=== PATIENT | female | born 1945 | race Asian ===

== ENCOUNTER → 2018-07-18 | Outpatient (CLI) | payer MEDICARE ==
[~2018-07-18] MED LIST: ALENDRONATE SOD70 MG PO; ALTACE10 MG PO; ASA81 MG PO; CALCIUM500 M3; FISH OIL 1,0001 EAC2 PO; GABAPENTIN100 MG PO; GABAPENTIN300 MG PO; LEVAQUIN500 MG PO; LEVEMIR100 UNIT/1 SQ; NOVOLOG100 UNIT/1 SQ; TAMIFLU75 MG PO; Z.0.CRESTOR20 MG PO; Z.0.SYNTHROID75 MCG PO; ZOFRAN8 MG; [UNRECOGNIZED DRUG - OTHER]
--- NOTE | 2018-07-18 16:06 | Diagnostic Imaging Report ---
EXAMINATION: CHEST 2 VIEWS COMPARISON: None FINDINGS: TUBES and LINES: None. LUNGS: Moderate inflation of the lungs. Mild patchy opacities at the lung bases. No evidence of lobar pneumonia or pulmonary edema. There is bronchial wall thickening. PLEURA: No pleural effusion or pneumothorax. HEART AND MEDIASTINUM: The cardiomediastinal silhouette is unremarkable. BONES AND SOFT TISSUES: No acute bony findings. Dextroconvex curvature of the thoracic spine. UPPER ABDOMEN: No free air under the diaphragm. IMPRESSION: Mild patchy opacities at the lung bases, likely atelectasis. Patchy pneumonia can have a similar appearance and a follow-up chest radiograph is suggested in 6-8 weeks to assess for resolution. Bilateral bronchial wall thickening, consistent with clinical history of bronchitis. Signed by: Dr. Lety Wagoner MD on 07/18/2018 4:03 PM
== END ==
LOC: RAD 15:02
PROVIDERS: ATTEND Family Medicine
DX: J40 Bronchitis, not specified as acute or chronic (principal)
CPT/HCPCS: 71046

== ENCOUNTER 2018-07-20 12:28 | Inpatient (IN) | payer MEDICARE ==
[~2018-07-20] VITALS: Ht 154.9 cm; Wt 66.9 kg
[~2018-07-20 12:28] MED LIST changes: -ALTACE10 MG PO; -GABAPENTIN100 MG PO; -GABAPENTIN300 MG PO; -LEVAQUIN500 MG PO; -TAMIFLU75 MG PO; -ZOFRAN8 MG
--- OUTSIDE RECORDS SUMMARY | 2018-07-20 12:32 | XMS REPORT ---
Author Author [facility] Address Unknown Phone Unavailable Care Team Providers Care Driver/Refuse Collector Name Role Phone REYMUNDO LOCK Unavailable Unavailable Problems This patient has no known problems. Allergies, Adverse Reactions, Alerts This patient has no known allergies or adverse reactions. Medications This patient has no known medications. Results Test Description Test Time Test Comments Text Results Atomic Results Result Comments CHEST 2 VIEWS 2018-07-18 16:01:00 [facility] [address] [address] Patient Name: BEBO GONZALEZ MR #: [id number] : 1945 Age/Sex: 73/F Req #: [id number] Adm Physician: Ordered by: REYMUNDO LOCK MD Report #: [id number] Location: [facility] Room/Bed: Procedure: [id number] DX/CHEST 2 VIEWS Exam Date: 07/18/18 Exam Time: 1520 REPORT STATUS: Signed EXAMINATION: CHEST 2 VIEWS COMPARISON: None FINDINGS: TUBES and LINES: None. LUNGS: Moderate inflation of the lungs. Mild patchy opacities at the lung bases. No evidence of lobar pneumonia or pulmonary edema. There is bronchial wall thickening. PLEURA: No pleural effusion or pneumothorax. HEART AND MEDIASTINUM: The cardiomediastinal silhouette is unremarkable. BONES AND SOFT TISSUES: No acute bony findings. Dextroconvex curvature of the thoracic spine. UPPER ABDOMEN: No free air under the diaphragm. IMPRESSION: Mild patchy opacities at the lung bases, likely atelectasis. Patchy pneumonia can have a similar appearance and a follow-up chest radiograph is suggested in 6-8 weeks to assess for resolution. Bilateral bronchial wall thickening, consistent with clinical history of bronchitis. Signed by: Dr. Claire Sarmiento MD on 07/18/2018 4:03 PM Dictated By: CLAIRE SARMIENTO MD 1603 Transcribed By: BLESSING on 07/18/18 1603 COPY TO: REYMUNDO LOCK MD
[2018-07-20] MEDS ORDERED: LEVAQUIN500 MG PO (13:18)
[2018-07-20] MEDS ORDERED: ALTACE10 MG PO (13:18)
[2018-07-20] MEDS ORDERED: ZOFRAN8 MG (13:18)
[2018-07-20] MEDS ORDERED: TAMIFLU75 MG PO (13:18)
[2018-07-20] MEDS ORDERED: GABAPENTIN100 MG PO (13:18)
[2018-07-20] MEDS ORDERED: GABAPENTIN300 MG PO (13:18)
--- NOTE | 2018-07-20 13:40 | Diagnostic Imaging Report ---
EXAMINATION: PA and lateral views of the chest. COMPARISON: 07/18/2018 CLINICAL HISTORY: Bronchitis DISCUSSION: When accounting for differences in technique, no appreciable interval change in the appearance of the lungs, with persistent bronchial thickening and bilateral lower lobe predominant patchy opacities. Stable cardiomediastinal contour with tortuosity and atherosclerotic calcification of the thoracic aorta. No acute osseous abnormalities. Stable dextroscoliotic curvature of the thoracic spine. IMPRESSION: Stable appearance of the chest relative to 07/18/2018, with findings of bronchitis and bibasilar atelectasis. As before, follow-up chest radiograph in 8 weeks is suggested to document resolution. Signed by: Dr. Bry Subramanian M.D. on 07/20/2018 1:37 PM
[2018-07-20] MEDS ORDERED: LEVOFLOXACIN 750MG/D5W 150ML 150 ML IV STA (14:02)
[2018-07-20] MEDS: SODIUM CHLORIDE 0.9% 1000ML 1,000 ML IV SCH ×3 (14:20→23:55)
[2018-07-20] MEDS ORDERED: CEFTRIAXONE SOD 1 GM VIAL IM STA (14:40)
[2018-07-20] MEDS ORDERED: AZITHROMYCIN 500MG/NS 250 ML 250 ML IV ONE (14:45)
[2018-07-20] MEDS: AZITHROMYCIN 500MG/NS 250 ML 250 ML IV SCH (15:00)
[2018-07-20] MEDS: CEFTRIAXONE SOD 1 GM VIAL IV SCH (15:00)
[2018-07-20] MEDS ORDERED: DEXTROSE 50% SYRINGE 50 ML IV PRN ×2 (15:45→20:00)
[2018-07-20] MEDS ORDERED: SODIUM CHLORIDE FLUSH 10 ML SYR INJ PRN (15:45)
[2018-07-20] MEDS ORDERED: AZITHROMYCIN 500MG/SOD CHL 0.9% 250ML BAG IV SCH (15:45)
[2018-07-20] MEDS ORDERED: ALBUTEROL SULF 0.083% NEB SOLN 3 ML NEB NEB SCH (15:45)
[2018-07-20] MEDS ORDERED: INSULIN REGULAR, HUMAN 100 UNIT/1 ML 3ML VIAL SQ SCH (16:30)
[2018-07-20] MEDS ORDERED: IPRATROPIUM BROMIDE 0.02% 2.5 ML NEB NEB SCH (16:30)
[2018-07-20] MEDS ORDERED: OSELTAMIVIR PHOSPHATE 75 MG CAP PO SCH (17:00)
[2018-07-20 19:00] VITALS: BP 183/67
[2018-07-20] MEDS ORDERED: NON-FORMULARY MEDICATION (Insulin Detemir (Levemir) 30 UNITS) SQ SCH (20:00)
[2018-07-20] MEDS ORDERED: BENZONATATE 100 MG CAP PO PRN (20:00)
[2018-07-20] MEDS ORDERED: ALBUTEROL/IPRATROPIUM 3 ML NEB NEB PRN (20:00)
[2018-07-20] MEDS ORDERED: ASPIRIN 81 MG PO SCH (20:00)
[2018-07-20] MEDS ORDERED: NON-FORMULARY MEDICATION (Rosuvastatin Calcium (Crestor) 20 MG) PO SCH (20:00)
[2018-07-20] MEDS: OSELTAMIVIR PHOSPHATE 75 MG CAP PO SCH (20:30)
[2018-07-20] MEDS: ASPIRIN 81 MG ENTERIC COATED PO SCH (20:30)
[2018-07-20] MEDS: INSULIN LISPRO 100 UNIT/1 ML 3ML VIAL SQ SCH (20:30)
[2018-07-20] MEDS: CRESTOR 10MG PO SCH (20:30)
[2018-07-20] MEDS ORDERED: INSULIN DETEMIR 100 UNIT/ML PEN SQ SCH (21:00)
[2018-07-20 21:21] VITALS: BP 100/62
[2018-07-21 00:06] VITALS: BP 159/71
[2018-07-21] MEDS: ALBUTEROL/IPRATROPIUM 3 ML NEB NEB SCH ×4 (03:35→20:00)
--- NOTE | 2018-07-21 03:43 | Diagnostic Imaging Report ---
EXAM: CT CHEST WO DATE: 07/20/2018 7:52 PM INDICATION: Shortness of breath COMPARISON: Chest Some 07/29/2015, 07/18/2018 TECHNIQUE: Multidetector CT scanning of the chest was performed. Coronal and sagittal multiplanar reformations were obtained. CT low dose techniques were utilized, as applicable. IV Contrast: 0 ml Isovue 370/300 FINDINGS: LUNGS AND PLEURA: Bilateral coarse reticular and subpleural opacities with traction bronchiectasis. Several small pulmonary nodules for example measuring 5 mm in the right lower lobe on image 66 and 4 mm nodule in the left lower lobe on image 64. No effusions or pneumothorax. HEART, MEDIASTINUM, VESSELS: Mild cardiomegaly with coronary artery and aortic atherosclerotic calcifications. No pericardial effusion. The main pulmonary artery is slightly enlarged, 3.4 cm. No suspicious adenopathy. UPPER ABDOMEN: Unremarkable noncontrast appearance. Incidental mildly atrophic pancreas. MUSCULOSKELETAL: Multilevel degenerative changes with mild T12 anterior wedging IMPRESSION: Findings most suggestive of chronic lung change/interstitial lung disease. Consider nonemergent follow-up CT high-resolution protocol. Signed by: Dr Azra Bundy MD on 07/21/2018 3:39 AM
[2018-07-21] MEDS: CEFTRIAXONE SOD 1 GM VIAL IV SCH ×2 (04:45→17:07)
[2018-07-21 05:11] VITALS: BP 125/58
[2018-07-21 05:15] LABS: BASOPHILS % 0.3 % (0.0-1.0); EOSINOPHILS # (AUTO) 0.2 (0.0-0.4); EOSINOPHILS % 3.2 % (0.0-6.0); HEMATOCRIT 30.6 % (34.2-44.1); HEMOGLOBIN 10.4 g/dL (12.0-16.0); LYMPHOCYTES # (AUTO) 2.9 (1.0-3.2); LYMPHOCYTES % 42.5 % (18.0-39.1); MEAN CORPUSCULAR HEMOGLOBIN 30.3 pg (28-32); MEAN CORPUSCULAR VOLUME 89.2 fL (81-99); MONOCYTES # (AUTO) 0.7 (0.2-0.8); MONOCYTES % 9.7 % (4.4-11.3); PLATELET COUNT 188 x10e3/uL (140-360); RED BLOOD COUNT 3.43 x10e6/uL (3.6-5.1); RED CELL DISTRIBUTION WIDTH 13.3 % (11.7-14.4)
[2018-07-21 05:36] LABS: ANION GAP 11.7 mmol/L (8-16); BLOOD UREA NITROGEN 9 mg/dL (7-26); BUN/CREATININE RATIO 11 (6-25); CALCIUM 7.8 mg/dL (8.4-10.2); CARBON DIOXIDE 21 mmol/L (22-29); CHLORIDE 109 mmol/L (98-107); CREATININE, SERUM 0.84 mg/dL (0.57-1.11); EST GLOMERULAR FILTRATION RATE > 60 ML/MIN (60-); GLUCOSE 161 mg/dL (74-118); POTASSIUM 3.7 mmol/L (3.5-5.1); SODIUM 138 mmol/L (136-145)
[2018-07-21] MEDS: LEVOTHYROXINE SODIUM 75 MCG TAB PO SCH (06:22)
[2018-07-21] MEDS: SODIUM CHLORIDE 0.9% 1000ML 1,000 ML IV SCH (06:23)
[2018-07-21] MEDS: INSULIN LISPRO 100 UNIT/1 ML 3ML VIAL SQ SCH ×7 (07:30→21:30)
[2018-07-21 08:16] LABS: CREATINE KINASE 534 IU/L (29-168)
[2018-07-21 08:20] VITALS: BP 137/56
[2018-07-21] MEDS: OSELTAMIVIR PHOSPHATE 75 MG CAP PO SCH (09:00)
[2018-07-21] MEDS ORDERED: NON-FORMULARY MEDICATION (Ramipril (Altace) 10 MG) PO SCH (09:00)
[2018-07-21] MEDS: ASPIRIN 81 MG ENTERIC COATED PO SCH (09:00)
[2018-07-21] MEDS: RAMIPRIL 5 MG CAP PO SCH (09:00)
[2018-07-21] MEDS: GABAPENTIN 100 MG CAP PO SCH ×2 (09:46→17:08)
[2018-07-21 11:57] VITALS: BP 150/81
[2018-07-21] MEDS ORDERED: METHYLPREDNISOLONE SOD SUCC 40 MG/ML VIAL IV SCH (12:00)
[2018-07-21 12:50] LABS: FOLATE 17.6 ng/mL (7.0-15.4)
[2018-07-21] MEDS: BENZONATATE 100 MG CAP PO SCH ×3 (13:12→20:57)
[2018-07-21] MEDS: GUAIFENESIN 600MG/DEXTROMETHORPHAN 30MG TABSR PO SCH ×2 (13:12→17:00)
[2018-07-21] MEDS ORDERED: ACETAMINOPHEN 325 MG TAB PO PRN ×2 (16:30)
[2018-07-21 16:38] VITALS: BP 142/60
--- NOTE | 2018-07-21 16:59 | Consultation ---
DATE OF CONSULTATION: PULMONARY CONSULTATION A [employer] 73-year-old woman admitted with cough productive of green sputum over the last 5 days. No improvement with Levaquin. History of diabetes, hypertension, hypothyroidism, degenerative joint disease of the knees. 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 ALLERGIES: NO KNOWN ALLERGIES. Born in [place]. She said that she had a recent flu vaccine. SURGICAL HISTORY: Hysterectomy. Nonsmoker. No alcohol. FAMILY HISTORY: Noncontributory. PHYSICAL EXAMINATION GENERAL: A well-developed female in no acute distress. VITALS: Temperature 98, pulse 79, respirations 18, blood pressure 150/78. HEENT: Normocephalic and atraumatic. NECK: Trachea midline. LUNGS: Wheezing in all lung [place]. HEART: Regular rhythm. ABDOMEN: Nontender. EXTREMITIES: Nonedematous. IMPRESSION 1. Community-acquired pneumonia: Possible influenza. 2. Diabetes. 3. Hypertension. The patient has had influenza vaccine recently according to her history. Chest x-ray reveals bilateral interstitial changes suspicious for fibrosis. Chest x-ray appeared clear in 2014. IMPRESSION 1. Probable atypical pneumonia. 2. Possible staphylococcus. Continue excellent medical management. Will add doxycycline to include staphylococcal coverage. Monitor blood sugars. Moderate dose steroids and bronchodilators. Follow up x-ray in approximately [address] if not completely cleared. Thank you for this kind referral. Job#: [id number] KELLY
[2018-07-21] MEDS: AZITHROMYCIN 500MG/NS 250 ML 250 ML IV SCH (17:07)
[2018-07-21] MEDS: DOXYCYCLINE HYCLATE TABLET 100 MG TAB PO SCH (17:25)
[2018-07-21 20:38] VITALS: BP 146/64
[2018-07-21] MEDS: CRESTOR 10MG PO SCH (20:57)
[2018-07-21] MEDS ORDERED: INSULIN DETEMIR 100 UNIT/ML PEN SQ SCH (21:00)
[2018-07-21] MEDS: METHYLPREDNISOLONE SOD SUCC 40 MG/ML VIAL IV SCH (21:24)
[2018-07-21] MEDS: HEPARIN SOD (PORCINE) 5,000 UNIT/ML VIAL SC SCH (21:30)
[2018-07-22 00:22] VITALS: BP 135/61
[2018-07-22] MEDS: ALBUTEROL/IPRATROPIUM 3 ML NEB NEB SCH (00:45)
[2018-07-22 03:57] VITALS: BP 146/64
[2018-07-22] MEDS: CEFTRIAXONE SOD 1 GM VIAL IV SCH (05:20)
[2018-07-22] MEDS: SODIUM CHLORIDE 0.9% 1000ML 1,000 ML IV SCH (05:20)
[2018-07-22] MEDS: LEVOTHYROXINE SODIUM 75 MCG TAB PO SCH (05:20)
[2018-07-22 06:37] VITALS: BP 162/70
[2018-07-22] MEDS: INSULIN LISPRO 100 UNIT/1 ML 3ML VIAL SQ SCH ×4 (08:00→12:20)
[2018-07-22] MEDS: RAMIPRIL 5 MG CAP PO SCH (08:06)
[2018-07-22] MEDS: METHYLPREDNISOLONE SOD SUCC 40 MG/ML VIAL IV SCH (08:06)
[2018-07-22] MEDS: GABAPENTIN 100 MG CAP PO SCH (08:06)
[2018-07-22] MEDS: ASPIRIN 81 MG ENTERIC COATED PO SCH (08:06)
[2018-07-22] MEDS: GUAIFENESIN 600MG/DEXTROMETHORPHAN 30MG TABSR PO SCH (08:06)
[2018-07-22] MEDS: BENZONATATE 100 MG CAP PO SCH (08:07)
[2018-07-22] MEDS: DOXYCYCLINE HYCLATE TABLET 100 MG TAB PO SCH (08:07)
[2018-07-22] MEDS: HEPARIN SOD (PORCINE) 5,000 UNIT/ML VIAL SC SCH (08:10)
[2018-07-22 09:11] VITALS: BP 154/68
[2018-07-22 14:25] VITALS: BP 175/72
[2018-07-22 14:44] VITALS: BP 175/72
--- NOTE | 2018-07-22 21:29 | Discharge Summary ---
PRIMARY CARE PHYSICIAN: Dr. Jos Tovar. COLOR ARTIST: Dr. Bry Reece. FINAL DIAGNOSES 1. Atypical pneumonia. 2. Intractable cough, much improved. 3. Wheezing, improving. SUMMARY: This 73-year-old female failed outpatient treatment with Levaquin. The patient came to the hospital for admission. Here the patient did receive doxycycline, azithromycin, and Rocephin. She is doing much better now. She is breathing much better with medication. The patient is recommended to stay in the hospital for another 1 to 2 days. The patient does need a few more days of treatment; however, she is adamantly wanting to be discharged today. The patient will be discharged home. She will resume home medications. She will take Robitussin as needed for cough, Tessalon Perles, azithromycin 250 mg daily for 5 days, and Medrol Dosepak; since the patient's wheezing has improved, she will continue with treatment; doxycycline 100 mg twice a day for 7 days, and ProAir HFA p.r.n. Patient is stable and discharged home today. She will follow with Dr. Tovar next week. We recommended the patient to repeat a CT scan for resolution of the infection. Job#: [id number] SHAYNA
== END 2018-07-22 16:20 | disposition home or self-care (01) | DRG 195 ==
LOC: FSED 12:28 → ERHOLD 15:45 → MED/SURG2 18:49
PROVIDERS: ADMIT Internal Medicine; ATTEND Internal Medicine
DX: J18.9 Pneumonia, unspecified organism (principal); R09.02 Hypoxemia; E11.9 Type 2 diabetes mellitus without complications; E03.9 Hypothyroidism, unspecified; I10 Essential (primary) hypertension; E78.5 Hyperlipidemia, unspecified; J20.9 Acute bronchitis, unspecified; M17.0 Bilateral primary osteoarthritis of knee; J84.10 Pulmonary fibrosis, unspecified
CPT/HCPCS: 36415; 71046; 71250; 80048; 80076; 82550; 82553; 82607; 82746; 82948; 83605; 84443; 84484; 85025; 85651; 86039; 86431; 87040; 87400; 93005; 94640; 99284; J0456; J0696; J1644; J2920; J7030

== ENCOUNTER 2019-04-13 12:06 | Inpatient (IN) | payer MEDICARE ==
[~2019-04-13] VITALS: Ht 152.4 cm; Wt 59.0 kg
[~2019-04-13 12:06] MED LIST changes: +ALTACE10 MG PO; +GABAPENTIN100 MG PO; +GABAPENTIN300 MG PO; +LEVAQUIN500 MG PO; +TAMIFLU75 MG PO; +ZOFRAN8 MG
[2019-04-13] MEDS ORDERED: ONDANSETRON HCL INJ 2MG/ML 2ML 2 MG/ML VIAL IV STA (12:26)
[2019-04-13] MEDS ORDERED: SODIUM CHLORIDE 0.9% 1000ML 1,000 ML IV SCH ×3 (12:30→14:45)
[2019-04-13] MEDS ORDERED: ONDANSETRON HCL INJ 2MG/ML 2ML 2 MG/ML VIAL ONE (13:07)
[2019-04-13] MEDS ORDERED: SODIUM CHLORIDE 0.9% 1000ML 1,000 ML ONE (13:07)
--- NOTE | 2019-04-13 13:53 | Diagnostic Imaging Report ---
Chest, 2 views, 04/13/2019. History: Cough. Comparison: 07/20/2018. Findings: The cardiomediastinal silhouette and pulmonary vasculature are prominent. There are mild diffuse interstitial opacities. There is no focal consolidation or effusion. Degenerative changes are noted throughout the thoracic spine. There are no acute osseous or soft tissue abnormalities. Impression: Findings suggestive of CHF with mild interstitial edema. Signed by: Casey Butt on 04/13/2019 1:50 PM
--- NOTE | 2019-04-13 14:13 | Diagnostic Imaging Report ---
CT of the abdomen and pelvis, without contrast, 04/13/2019. History: Nausea vomiting, abdominal pain. Comparison: None available. Technique: Multidetector CT scanning of the abdomen and pelvis was performed from the level of the lung bases to the inferior pubic rami without intravenous or oral contrast. Coronal and sagittal multiplanar reformations were obtained. RADIATION DOSE: Total DLP: 454 mGy*cm Dose modulation, iterative reconstruction, and/or weight based adjustment of the mA/kV was utilized to reduce the radiation dose to as low as reasonably achievable. Discussion: Examination is limited without contrast. Lung bases: There is bibasilar atelectasis and mild interstitial prominence. Abdomen: The liver, gallbladder, biliary tree, spleen, pancreas, adrenal glands, and kidneys are unremarkable. The abdominal aorta is within normal limits. There is no bowel dilatation. The appendix is visualized and is normal. There is no evidence of adenopathy or free fluid. Pelvis: The bladder is unremarkable. The uterus and adnexa are not visualized. There is no evidence of free fluid or adenopathy. Bones and soft tissues: Degenerative changes are present throughout the lumbar spine without evidence of lytic or sclerotic lesion. IMPRESSION: Status post hysterectomy. Otherwise unremarkable noncontrast CT of the abdomen and pelvis. No evidence of cholelithiasis, nephrolithiasis, appendicitis, or bowel obstruction. Signed by: Casey Butt on 04/13/2019 2:09 PM
[2019-04-13] MEDS ORDERED: LEVOFLOXACIN 750MG/D5W 150ML 150 ML IV SCH (14:30)
[2019-04-13] MEDS ORDERED: LEVOFLOXACIN 750MG/D5W 150ML 150 ML IV ONE (14:44)
[2019-04-13] MEDS ORDERED: DEXTROSE 50% SYRINGE 50 ML IV PRN ×2 (14:45→18:00)
[2019-04-13] MEDS ORDERED: ONDANSETRON HCL INJ 2MG/ML 2ML 2 MG/ML VIAL IV PRN (14:45)
[2019-04-13] MEDS ORDERED: INSULIN REGULAR, HUMAN 100 UNIT/1 ML 3ML VIAL SQ SCH (16:30)
[2019-04-13] MEDS ORDERED: NON-FORMULARY MEDICATION (Insulin Detemir (Levemir) 40 UNITS) SQ SCH (18:00)
[2019-04-13] MEDS ORDERED: ASPIRIN 81 MG PO SCH (18:00)
--- NOTE | 2019-04-13 18:15 | NUR ---
Report to DARRICK Gage.
--- NOTE | 2019-04-13 18:16 | NUR ---
Call [facility] for transport. ETA is about an hour.
--- NOTE | 2019-04-13 19:06 | NUR ---
Shift report to DARRICK Coates
--- NOTE | 2019-04-13 19:10 | NUR ---
UPDATED ETA FROM [facility] IS 20 MINUTES
--- NOTE | 2019-04-13 19:19 | NUR ---
RAD FROM [facility] REQUESTED ORGINAL ORDER PUT IN BY PAULA HOLLINGSWORTH FOR CT WITHOUT CHEST TO BE CHANGED TO VERBAL INSTERAD OF WRITTEN PER ORGINAL DOCTORS ORDER.
[2019-04-13 20:00] VITALS: BP 144/60
[2019-04-13] MEDS: CEFTRIAXONE SOD 1 GM/NS 50 ML 50 ML IV SCH (20:35)
[2019-04-13] MEDS ORDERED: SODIUM CHLORIDE 0.9% 250ML 250 ML ONE (20:38)
[2019-04-13 21:00] VITALS: BP 124/78
[2019-04-13] MEDS ORDERED: INSULIN GLARGINE 100 UNITS/ML VIAL SQ SCH (21:00)
[2019-04-13] MEDS: INSULIN LISPRO 100 UNIT/1 ML 3ML VIAL SQ SCH ×2 (21:00)
[2019-04-13 21:02] LABS: BASOPHILS # (AUTO) 0.1 (0.0-0.1); BASOPHILS % 0.5 % (0.0-1.0); EOSINOPHILS # (AUTO) 0.5 (0.0-0.4); EOSINOPHILS % 3.7 % (0.0-6.0); HEMATOCRIT 37.2 % (34.2-44.1); HEMOGLOBIN 12.4 g/dL (12.0-16.0); LYMPHOCYTES # (AUTO) 3.2 (1.0-3.2); LYMPHOCYTES % 25.7 % (18.0-39.1); MEAN CORPUSCULAR HEMOGLOBIN 29.9 pg (28-32); MEAN CORPUSCULAR HGB CONC 33.3 g/dL (31-35); MEAN CORPUSCULAR VOLUME 89.6 fL (81-99); MONOCYTES # (AUTO) 1.1 (0.2-0.8); MONOCYTES % 8.6 % (4.4-11.3); NEUTROPHILS # (AUTO) 7.5 (2.1-6.9); PLATELET COUNT 187 x10e3/uL (140-360); RED BLOOD COUNT 4.15 x10e6/uL (3.6-5.1); RED CELL DISTRIBUTION WIDTH 13.9 % (11.7-14.4)
[2019-04-13 21:16] LABS: ANION GAP 17.3 mmol/L (8-16); CALCIUM 9.5 mg/dL (8.4-10.2); CREATININE, SERUM 1.24 mg/dL (0.57-1.11); POTASSIUM 4.3 mmol/L (3.5-5.1)
[2019-04-13] MEDS: AZITHROMYCIN 250MG/NS 100 ML 100 ML IV SCH (21:45)
--- NOTE | 2019-04-13 22:00 | NUR ---
Dr. Avila and Rob called for consult
--- NOTE | 2019-04-13 23:49 | NUR ---
Radiology was called and made aware of pending ct, states will come pick patient
[2019-04-14] VITALS (10 sets, daily range): BP systolic 124–154; BP diastolic 51–94
[2019-04-14 05:24] LABS: BASOPHILS % 0.4 % (0.0-1.0); EOSINOPHILS # (AUTO) 0.4 (0.0-0.4); EOSINOPHILS % 5.2 % (0.0-6.0); HEMATOCRIT 32.5 % (34.2-44.1); HEMOGLOBIN 10.8 g/dL (12.0-16.0); LYMPHOCYTES % 25.9 % (18.0-39.1); MEAN CORPUSCULAR HEMOGLOBIN 29.5 pg (28-32); MEAN CORPUSCULAR HGB CONC 33.2 g/dL (31-35); MEAN CORPUSCULAR VOLUME 88.8 fL (81-99); MONOCYTES # (AUTO) 0.7 (0.2-0.8); MONOCYTES % 8.8 % (4.4-11.3); NEUTROPHILS # (AUTO) 4.7 (2.1-6.9); NEUTROPHILS % 59.6 % (38.7-80.0); PLATELET COUNT 186 x10e3/uL (140-360); RED BLOOD COUNT 3.66 x10e6/uL (3.6-5.1); RED CELL DISTRIBUTION WIDTH 13.9 % (11.7-14.4)
[2019-04-14 05:52] LABS: ALBUMIN 2.7 g/dL (3.5-5.0); ANION GAP 13.5 mmol/L (8-16); CREATININE, SERUM 1.04 mg/dL (0.57-1.11); POTASSIUM 4.5 mmol/L (3.5-5.1)
--- NOTE | 2019-04-14 06:39 | Diagnostic Imaging Report ---
EXAMINATION: CT scan of the chest without contrast. TECHNIQUE: Spiral CT images of the chest were performed from the lung apices to the level of the adrenal glands. No intravenous contrast was administered per referring physician request. Coronal and sagittal reformatted images were obtained. COMPARISON: CT chest 07/20/2018 CLINICAL HISTORY:Shortness of breath, pneumonia DISCUSSION: ABSENCE OF INTRAVENOUS CONTRAST DECREASES SENSITIVITY FOR DETECTION OF FOCAL LESIONS AND VASCULAR PATHOLOGY. LINES/TUBES: None. LUNGS AND AIRWAYS: As before, basal predominant juxtapleural reticular and groundglass opacities, similar to that noted on 07/20/2018. There are scattered foci of endobronchial mucous plugging for example in the right upper lobe on series 3 image 27 and in the right lower lobe on series 3 image 69. 5 mm right lower lobe pulmonary nodule is unchanged (series 3 image 62) 4-mm left lower lobe pulmonary nodule is also unchanged, series 3 image 61. No airspace consolidations. PLEURA: No pneumothorax or pleural effusions. HEART AND MEDIASTINUM: Visualized portions of the thyroid gland appear normal. Atherosclerotic calcification of the [place] coronary arteries, aortic arch, and great vessel origins. No ectasia or aneurysmal dilatation. Pulmonary outflow tract is of normal caliber. No pericardial effusion. No axillary, hilar, or mediastinal lymphadenopathy. LYMPH NODES: There is no mediastinal, hilar or axillary lymphadenopathy. ABDOMEN: Visualized portions of the liver, spleen, pancreas, adrenal lands, and stomach are unremarkable. BONES AND SOFT TISSUES: Multilevel degenerative disc changes of the thoracic spine similar to that seen on 07/20/2018. IMPRESSION: Findings are again most suggestive of chronic interstitial lung disease, with a basal predominance. Nonemergent high-resolution chest CT may be of benefit for further characterization. Scattered foci of segmental bronchial mucous plugging. Subcentimeter bilateral lower lobe pulmonary nodules are stable. Atherosclerotic vascular disease. Signed by: Dr. Bry Subramanian M.D. on 04/14/2019 6:36 AM
--- NOTE | 2019-04-14 06:40 | Diagnostic Imaging Report ---
Examination: Single AP view of the chest. COMPARISON: 07/18/2018, same day chest CT INDICATION: Cough DISCUSSION: Lungs are well-inflated. Coarse reticular opacities in the lung bases. No consolidation or effusion. Tortuous thoracic aorta with atherosclerotic calcification. Normal heart size for technique. No acute osseous abnormality. IMPRESSION: Bibasilar opacities likely representing fibrotic changes. Refer to same day chest CT. Signed by: Dr. Bry Subramanian M.D. on 04/14/2019 6:37 AM
--- NOTE | 2019-04-14 07:11 | NUR ---
Consult made to Dr. Larios for hrt block, states will see patient
--- NOTE | 2019-04-14 07:12 | NUR ---
Report given to hayes Ross
[2019-04-14] MEDS: CEFTRIAXONE SOD 1 GM/NS 50 ML 50 ML IV SCH ×2 (07:18→19:53)
[2019-04-14] MEDS: LEVOTHYROXINE SODIUM 75 MCG TAB PO SCH (07:18)
[2019-04-14] MEDS: INSULIN LISPRO 100 UNIT/1 ML 3ML VIAL SQ SCH ×7 (07:44→20:18)
[2019-04-14] MEDS ORDERED: GABAPENTIN 300 MG CAP PO SCH (09:00)
[2019-04-14] MEDS ORDERED: GABAPENTIN 100 MG CAP PO SCH (09:00)
[2019-04-14] MEDS: ASPIRIN 81 MG CHEW TAB PO SCH (09:46)
--- NOTE | 2019-04-14 13:42 | Consultation ---
DATE OF CONSULTATION: 04/14/2019 Cardiac Consultation REASON FOR CONSULTATION: Alberto, possible 2:1 AV block. HISTORY OF PRESENT ILLNESS: A 73-year-old lady in complete denial, she wants to go home. For 3 days, she is having fever and chills after sore throat, she had vomiting. The patient came to this institution, started on antibiotic, diagnosed with bronchitis. Her problem started with sore throat, cough, fever, and chills. The patient was very febrile. With that, she is having also nausea and vomiting, and with that the patient noted she go to [facility] with these retching episodes. Cardiac consultation is obtained. The patient told me she was seen by Cardiology 3 years ago and she had a stress test. She denied having any cardiac issue, however, she is very poorly historian. She does not know much about her health problem. She denied having any lung disease, although she was here before with wheezes and chronic lung disease. She is diabetic, hypertensive, heavy smoker with hypothyroidism. The patient denied having any exertional angina. She said she can do whatever activity without any symptoms. There is no orthopnea, no paroxysmal nocturnal dyspnea. The patient having relentless cough. She is having with the cough, chest pain. She is having nausea and not feeling well. REVIEW OF SYSTEMS: Extensive to all systems, will be summarized for clarity. GENERAL: Fever and chills, bzhjwnv-hv-leawcl of three days duration. HEENT: Congestion and change in voice. PULMONARY: Cough, nonproductive. CARDIAC: Per HPI. GI: Nausea, vomiting and feeling sick to her stomach. GENITOURINARY: No hematemesis, no melena. : Stress incontinence. MUSCULOSKELETAL: Aches and pain all over the body. NEUROLOGIC: Occasional headache. No seizure activity. ENDOCRINOLOGIC: The patient is diabetic. SOCIAL HISTORY: She is . 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 She is a smoker. She is non-alcohol drinker. HOME MEDICATIONS: Includin. Levothyroxine 75 mcg a day. 2. Crestor 20 mg a day. 3. Aspirin 81 mg a day. 4. Altace 10 mg a day. 5. Insulin. 6. Gabapentin. ALLERGIES: NONE. PAST MEDICAL HISTORY: 1. Chronic lung disease with repeated admission with lung disease. Please refer to last admission, seen by Dr. Reece. 2. Diabetes mellitus, end-organ damage. 3. Hypothyroidism. 4. Hyperlipidemia. 5. Hypertension. FAMILY HISTORY: No family history of premature coronary artery disease. PHYSICAL EXAMINATION: VITAL SIGNS: Height of 5 feet, weight of 130 pounds. Blood pressure 140/60, heart rate of 60, respiratory rate of 18, and temperature of 99.3 Fahrenheit. HEENT: Congestion and changing voice. NECK: No elevation of jugular venous pulsation. CHEST: Prolonged expiration phase. Few crackles. HEART: PMI, fifth left intercostal space. Normal first and second heart sounds. ABDOMEN: Soft, with good bowel sounds. No organomegaly. EXTREMITIES: No cyanosis, no clubbing, no edema. NEUROLOGIC: Awake, alert, oriented, able to move all extremities. LABORATORY DATA: White blood cell count of 7.8, hemoglobin of 10.8, hematocrit 32%, and platelet count of 106,000. BUN of 14 and creatinine of 1. TSH of 1.56. Hemoglobin A1c at 9%. RADIOGRAPHIC DATA: EKG showing normal sinus rhythm, left ventricular hypertrophy, nonspecific ST-T changes. Chest x-ray, fibrotic changes, confirmed by CAT scan, chronic interstitial lung disease and heavy calcified aorta and coronaries. Telemetry, Wenckebach and possible one episode of 2:1 AV block. IMPRESSION AND PLAN: 1. Admission with respiratory illness, possible severe bronchitis. 2. Chronic lung disease. 3. Diabetes mellitus, end-organ damage. 4. Hypertension. 5. Hyperlipidemia. 6. Very high probability of coronary artery disease. 7. Atrial arrhythmias, Wenckback, possible heightened by nausea possible sick sinus syndrome. PLAN: 1. Cardiac dejesus recommendation to continue her levothyroxine to avoid all AV blocking agent to treat the acute illness. 2. To keep on telemetry. 3. We will have lengthy discussion with the patient explaining for her she needs to have full cardiac evaluation. She verbalized understanding, questions were answered, long visit for more than an hour. MD FLOR Alicea/NA /[id number] SHARRON
[2019-04-14] MEDS: GUAIFENESIN/CODEINE 10 ML CUP PO PRN ×2 (14:51→20:37)
--- NOTE | 2019-04-14 18:18 | Consultation ---
DATE OF CONSULTATION: Pulmonary Consultation REASON FOR CONSULTATION: Abnormal CT chest. HISTORY OF PRESENT ILLNESS: Ms. Yeh is a 73-year-old female. She presented to the emergency room with complaints of shortness of breath and cough, bringing up green phlegm. She denies any complaint of chest pain. She was having nausea and vomiting yesterday, for last 2 days as well, which is improved now. CT of the chest showed findings suggestive of chronic interstitial disease. I have reviewed the images showing evidence of possible pulmonary fibrosis. The patient has history of non-Hodgkin's lymphoma and received chemotherapy. Denies any radiation treatment. Denies any use of amiodarone, methotrexate, bleomycin, or nitrofurantoin. REVIEW OF SYSTEMS: GENERAL: Denies any fever or chills. HEAD: Denies any head trauma. ENT: Denies any earache. CVS: Denies any chest pain. RESPIRATORY: Denies any shortness of breath. GI: Denies any nausea or vomiting. The rest of the review of systems are negative except as in HPI. PAST MEDICAL HISTORY: Hypertension, diabetes, and history of non-Hodgkin's lymphoma. FAMILY AND SOCIAL HISTORY: She has never smoked and does not drink. Denies any history of occupational exposure to asbestos. PHYSICAL EXAMINATION: VITAL SIGNS: Temperature 99.3, pulse is 64, blood pressure 146/94, respiratory rate of 18, and O2 saturation 96% on room air. HEENT: Head is atraumatic and normocephalic. NECK: Supple. CHEST: Crackles bilaterally. HEART: S1 and S2 audible. ABDOMEN: Soft, nontender, and nondistended. EXTREMITIES: No clubbing, cyanosis, or edema. NEUROLOGIC: Awake and alert. LABORATORY DATA: White count of 7.81, hemoglobin 10.8, and platelets 186. Chemistry is within normal limits. CT of the chest, I reviewed the images and compared with a CT chest which was done in July of 2018. Both has findings of interstitial lung disease. She had a CT abdomen and pelvis in July of 2015 and at that time, the report does not say that lungs were any abnormal. I cannot see the images. ASSESSMENT/PLAN: Ms. Yeh is a 73-year-old female. She came in with nausea. Chest CT showing incidental finding of interstitial lung disease. Images have suggested that the patient probably have UIP pattern, however, the high-resolution CT was not done. I reviewed all the CAT scan in the Radiology software. In July of 2018, she had a CAT scan which showed similar finding and no worsening, since then she never followed up. She had a 2015 CT abdomen and pelvis, the lower cuts per the report did not show any changes, however, I am unable to see the images myself. PLAN: At this point, agree with antibiotics. I will add low-dose steroids for possible exacerbation of interstitial lung disease. Once the patient is discharged, she can follow up as an outpatient and further workup for interstitial lung disease can be done as an outpatient. The autoimmune labs were done in 2018 with RESHMA and rheumatoid factor, both being negative. This was discussed with the patient's at bedside in detail. MD KATHY Lambert/NA /[id number]
[2019-04-14] MEDS: AZITHROMYCIN 250MG/NS 100 ML 100 ML IV SCH (18:39)
--- NOTE | 2019-04-14 19:34 | Consultation ---
DATE OF CONSULTATION: April 14, 2019 Endocrine consultation The patient Dr. Harmon. Thank you very much for referring this patient. HISTORY OF PRESENT ILLNESS: This is a 73-year-old [place] lady, who is referred to me for evaluation of uncontrolled diabetes mellitus. The patient came to the hospital with history of fever, chills, and sore throat and some nausea and vomiting. She was admitted to the hospital for further evaluation. 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 The patient has significant history of diabetes mellitus for almost 8-10 years and takes a combination of insulin, NovoLog 30-40 units three times a day, and Levemir insulin 60 at bedtime. She is also on Synthroid 0.075 mg once daily, Altace 10 mg once daily, and Crestor 20 mg once daily for hyperlipidemia and hypertension. The patient was also found to have lymphoma. The details are very sketchy at this time. She has a provisional diagnosis of bronchitis. PHYSICAL EXAMINATION: GENERAL: Today, the patient is alert, awake, little bit apprehensive. VITAL SIGNS: Her heart rates is around 70, blood pressure 140/80 mmHg. She has bilateral bronchospasm. CARDIAC: First and second heart sounds. There is no third or fourth with the systolic grade 2/6. NEUROLOGIC: The patient has evidence of diabetic sensory neuropathy in both lower extremities. IMPRESSION: 1. Diabetes mellitus type 2, uncontrolled with complications. 2. 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 3. Hypertension. 4. Hyperlipidemia. 5. History of lymphoma. PLAN: At this time is to do a hemoglobin A1c, thyroid function tests, monitor blood sugars closely and adjust insulin dose. Thank you for referring this patient. I will be following this patient with you. MD SKIP Falcon/NA /[id number] SHARRON
--- NOTE | 2019-04-14 20:24 | History and Physical ---
CHIEF COMPLAINT: Cough, congestion. HISTORY OF PRESENT ILLNESS: This is a 73-year-old [place] female, who has a history of esophageal cancer in the past, who apparently has been here before, was seen by her primary care physician on yesterday. Reportedly, was complaining of cough, congestion, questionable subjective fever, and was told to come to the emergency room department to be further evaluated and managed. The patient is seen and evaluated at bedside on the medical floor. She is currently doing well with no other issues. She denies any chest pain, palpitations, nausea, or vomiting. The patient is currently on antibiotics, being treated for acute bronchitis. REVIEW OF SYSTEMS: 1. Pertinent positives: Cough, congestion, subjective fever. 2. Pertinent negatives: Denies any chest pain, palpitations, nausea, vomiting, diarrhea, dysuria, hematuria, frequency, urgency, lightheadedness, dizziness, abdominal pain, headaches, shortness of breath, or any other complaints. The rest of the 14-point review of systems have been reviewed with the patient and are negative. ALLERGIES: NO KNOWN DRUG ALLERGIES. HOME MEDICATIONS: 1. Alendronate 70 mg daily. 2. Calcium carbonate 500 mg daily. 3. Fish oil. 4. Zofran. 5. Ramipril 10 mg daily. 6. Crestor 20 mg daily. 7. Aspirin 81 mg daily. 8. Gabapentin 300 mg p.o. b.i.d. 9. She takes insulin premeal t.i.d. 10. Levemir 60 units at bedtime. 11. Levothyroxine 75 mcg daily. PAST MEDICAL HISTORY: 1. Type 2 diabetes. 2. Hypertension. 3. Hypothyroidism. 4. Peripheral neuropathy. PAST SURGICAL HISTORY: Hysterectomy. FAMILY HISTORY: Hypertension and diabetes. SOCIAL HISTORY: No drugs. No alcohol. Does not smoke. PHYSICAL EXAMINATION: VITAL SIGNS: Temperature is 99.8, pulse 64, respiratory rate 17, blood pressure 146/94, pulse ox 96% on room air. GENERAL: Not in acute distress. Alert and oriented x3. Cooperative on examination. HEENT: Head; normocephalic and atraumatic. Eyes; pupils are equal, round, and reactive to light bilaterally. Extraocular Movements are intact bilaterally. Neck: Supple. Good range of motion. Throat; no evidence of erythema or exudates in the posterior pharynx. Has poor dentition. PULMONARY: Clear to auscultation bilaterally. No wheezing, no rales, no rhonchi, and no crackles appreciated. CARDIOVASCULAR: Positive S1 and S2. No murmurs, rubs, or gallops appreciated. GI: Abdomen is soft, nondistended and nontender to palpation. Bowel sounds present. MUSCULOSKELETAL: Strength is 5/5 throughout. No evidence of any muscle deficits on examination. No weakness appreciated. NEUROLOGIC: Cranial nerves II through XII grossly intact. No evidence of any neurological deficits on exam. SKIN: Intact. Warm to touch. Good cap refill. PSYCHIATRIC: Normal affect and mood. EXTREMITIES: No edema. Good range of motion throughout. LAB FINDINGS: Show white count 7.1, hemoglobin 10.8, hematocrit 32.5, platelets of 186. Chemistries, sodium 140, potassium 4.5, chloride 106, bicarb 25, anion gap of 13, BUN is 14, creatinine is 1, glucose is 260, A1c 7.9. LFTs within normal range. TSH is 1.5 and albumin 2.7. MICROBIOLOGY: Blood cultures, no growth. Urine cultures, no growth to date. IMAGING STUDIES: Chest x-ray shows evidence of congestive heart failure with interstitial edema. CT abdomen and pelvis shows status post hysterectomy. Otherwise negative CT abdomen and pelvis. Chest x-ray shows bibasilar opacity, likely representing fibrotic changes. CT chest, findings suggestive of chronic interstitial lung disease with basal predominance. Nonemergent high-resolution CT may be beneficial for further characterization of scattered foci of segmental bronchial mucous plugging. Subcentimeter bilateral lower lobe pulmonary nodules are stable. Atherosclerotic vascular disease. IMPRESSION: 1. Sepsis with underlying acute bronchitis. 2. Uncontrolled type 2 diabetes. 3. Probable community-acquired pneumonia. 4. Interstitial lung disease. 5. Nausea and vomiting with associated abdominal pain. PLAN: At this time, the patient will continue with IV antibiotics, antinausea medication, pain control. Resume same home medications. Continue with long-acting premeal insulin. Pulmonary and Endocrinology has been consulted accordingly. Monitor cultures. Continue with Lovenox for DVT prophylaxis. MD EBONIE Sood/MODMandi /[id number]
[2019-04-14] MEDS ORDERED: INSULIN GLARGINE 100 UNITS/ML VIAL SQ SCH (21:00)
--- NOTE | 2019-04-14 21:05 | NUR ---
reports given to Mary koo patient is moving to rm [id number]. patient is eating snacks at this time.
--- NOTE | 2019-04-14 21:19 | NUR ---
Report received from nurse.
--- NOTE | 2019-04-14 21:29 | NUR ---
Patient arrived to floor via w/c.
--- NOTE | 2019-04-14 23:54 | NUR ---
Patient denies pain or dis comfort at this time. Continue monitor for change in patient condition.
[2019-04-15] VITALS (7 sets, daily range): BP systolic 137–168; BP diastolic 65–78
[2019-04-15] MEDS: GUAIFENESIN/CODEINE 10 ML CUP PO PRN ×2 (00:12→10:47)
--- NOTE | 2019-04-15 01:08 | NUR ---
Patient resting quitly at this time. Continue monitor.
[2019-04-15] MEDS: LEVOTHYROXINE SODIUM 75 MCG TAB PO SCH (06:00)
--- NOTE | 2019-04-15 06:17 | NUR ---
No noted changes in patient condition. Continue monitor.
[2019-04-15] MEDS ORDERED: SODIUM CHLORIDE 0.9% 250ML 250 ML ONE (06:31)
[2019-04-15] MEDS: CEFTRIAXONE SOD 1 GM/NS 50 ML 50 ML IV SCH ×2 (06:46→18:14)
[2019-04-15] MEDS: INSULIN LISPRO 100 UNIT/1 ML 3ML VIAL SQ SCH ×7 (07:30→21:00)
[2019-04-15 08:41] LABS: BASOPHILS % 0.6 % (0.0-1.0); EOSINOPHILS # (AUTO) 0.5 (0.0-0.4); EOSINOPHILS % 6.7 % (0.0-6.0); HEMATOCRIT 35.9 % (34.2-44.1); HEMOGLOBIN 11.9 g/dL (12.0-16.0); LYMPHOCYTES # (AUTO) 2.3 (1.0-3.2); MEAN CORPUSCULAR HEMOGLOBIN 29.1 pg (28-32); MEAN CORPUSCULAR HGB CONC 33.1 g/dL (31-35); MEAN CORPUSCULAR VOLUME 87.8 fL (81-99); MONOCYTES # (AUTO) 0.5 (0.2-0.8); MONOCYTES % 6.8 % (4.4-11.3); NEUTROPHILS # (AUTO) 3.5 (2.1-6.9); NEUTROPHILS % 51.8 % (38.7-80.0); PLATELET COUNT 229 x10e3/uL (140-360); RED BLOOD COUNT 4.09 x10e6/uL (3.6-5.1); RED CELL DISTRIBUTION WIDTH 13.4 % (11.7-14.4)
[2019-04-15 09:06] LABS: ALANINE AMINOTRANSFERASE 19 IU/L (0-55); ALBUMIN 3.1 g/dL (3.5-5.0); ALBUMIN/GLOBULIN RATIO 0.9 (0.8-2.0); ANION GAP 14.1 mmol/L (8-16); BLOOD UREA NITROGEN 11 mg/dL (7-26); BUN/CREATININE RATIO 13 (6-25); CALCIUM 9.8 mg/dL (8.4-10.2); CARBON DIOXIDE 26 mmol/L (22-29); CHLORIDE 104 mmol/L (98-107); CHOL/HDL RATIO 5.3 (3.0-3.6); CHOLESTEROL 160 MD/DL (0-199); CREATININE, SERUM 0.87 mg/dL (0.57-1.11); EST GLOMERULAR FILTRATION RATE > 60 ML/MIN (60-); GLUCOSE 201 mg/dL (74-118); HDL CHOLESTEROL 30 MG/DL (40-60); LDL CHOLESTEROL 99 MG/DL (60-130); POTASSIUM 4.1 mmol/L (3.5-5.1); SODIUM 140 mmol/L (136-145); TRIGLYCERIDES 154 MG/DL (0-149)
[2019-04-15] MEDS: PREDNISONE 20 MG TAB PO SCH (09:09)
[2019-04-15] MEDS: ASPIRIN 81 MG CHEW TAB PO SCH (09:09)
[2019-04-15 09:27] LABS: ALKALINE PHOSPHATASE 68 IU/L (40-150)
[2019-04-15 09:29] LABS: FREE T4 (FREE THYROXINE) 1.17 ng/dL (0.8-1.8); THYROID STIMULATING HORMONE 3.631 uIU/mL (0.350-4.940)
[2019-04-15] MEDS: AZITHROMYCIN 250MG/NS 100 ML 100 ML IV SCH (17:34)
--- NOTE | 2019-04-15 19:44 | NUR ---
Received change of shift report from AM nurse. Walking rounds completed. Patient sitting at this side if the bed on her computer. Denies pain at this time. Patient needs a IV. Will replace.
[2019-04-15] MEDS ORDERED: INSULIN GLARGINE 100 UNITS/ML VIAL SQ SCH (21:00)
[2019-04-16] VITALS: BP 173/81
[2019-04-16] MEDS ORDERED: ALENDRONATE SODIUM 70 MG TAB PO SCH
[2019-04-16] MEDS ORDERED: ONDANSETRON HCL 4 MG ORAL DISINTEGRATING TAB PO PRN
--- NOTE | 2019-04-16 | NUR ---
Patient resting quitly at this time with no c/o. Spouce at bedside.
--- NOTE | 2019-04-16 02:46 | Progress Note ---
DATE: 04/15/2019 Medicine Progress Note SUBJECTIVE: The patient is actually doing very well with no complaints. No overnight events. PHYSICAL EXAMINATION: VITAL SIGNS: Temperature 96.8, pulse 73, respirations 18, blood pressure 157/78, pulse ox 95% on room air. GENERAL: Not in acute distress. Alert and oriented x3. Cooperative on examination. HEENT: Head; normocephalic and atraumatic. Eyes; pupils are equal, round, and reactive to light bilaterally. Extraocular movements are intact bilaterally. Throat; no evidence of erythema or exudates in the posterior pharynx. Has poor dentition. NECK: Supple. Good range of motion. PULMONARY: Clear to auscultation bilaterally. No wheezing, rales, or rhonchi. No crackles appreciated. CARDIOVASCULAR: Positive S1 and S2. No murmurs, rubs, or gallops appreciated. ABDOMEN: Soft, nondistended, and nontender to palpation. Bowel sounds present. MUSCULOSKELETAL: Strength is 5/5 throughout. No evidence of any muscle deficits on examination. No weakness appreciated. NEUROLOGIC: Cranial nerves II through XII grossly intact. No evidence of any neurological deficits on exam. SKIN: Intact. Warm to touch. Good cap refill. PSYCHIATRIC: Normal affect and mood. EXTREMITIES: No edema. Good range of motion throughout. LABORATORY FINDINGS: Show white count 6.7, hemoglobin 11.9, hematocrit 35.9, platelets of 229. Chemistries: Sodium is 140, potassium is 4.1, chloride is 104, bicarb is 26, anion gap of 14, BUN is 11, creatinine is 0.87, glucose is 201. Lactic acid was not collected. Calcium is normal. LFTs within normal range. Albumin is 3.1. MICROBIOLOGY: Blood cultures so far negative greater than 48 hours and her urine culture was negative and it is final. IMAGING STUDIES: There is a CT of the chest shows findings again suggestive of chronic interstitial lung disease with basal prominence. There is also concern of mucus plugging bronchially, but scattered, likely to be bronchitis. IMPRESSION: 1. Sepsis with underlying acute bronchitis, improving. 2. Uncontrolled type 2 diabetes. 3. Probable community-acquired pneumonia. 4. Interstitial lung disease. 5. Nausea and vomiting associated with abdominal pain. PLAN: At this time, blood and urine cultures were found to be negative. Continue with IV antibiotics. She is doing very well today with no complaints. Pulmonary is evaluating closely. She will need to follow up with Pulmonary as an outpatient. In relation to her diabetes and sugar levels, Endocrinology was consulted. It seems like if her cultures are negative tomorrow and her labs are stable, we will discharge her to home. She is otherwise doing very well. MD EBONIE Sood/NA /[id number]
[2019-04-16 04:00] VITALS: BP 144/65
[2019-04-16] MEDS: LEVOTHYROXINE SODIUM 75 MCG TAB PO SCH (06:00)
[2019-04-16 06:01] LABS: BASOPHILS % 0.2 % (0.0-1.0); EOSINOPHILS # (AUTO) 0.1 (0.0-0.4); EOSINOPHILS % 0.9 % (0.0-6.0); HEMATOCRIT 31.6 % (34.2-44.1); HEMOGLOBIN 11.2 g/dL (12.0-16.0); LYMPHOCYTES # (AUTO) 3.1 (1.0-3.2); LYMPHOCYTES % 37.8 % (18.0-39.1); MEAN CORPUSCULAR HEMOGLOBIN 30.4 pg (28-32); MEAN CORPUSCULAR HGB CONC 35.4 g/dL (31-35); MEAN CORPUSCULAR VOLUME 85.6 fL (81-99); MONOCYTES # (AUTO) 0.5 (0.2-0.8); MONOCYTES % 6.2 % (4.4-11.3); NEUTROPHILS # (AUTO) 4.4 (2.1-6.9); NEUTROPHILS % 54.5 % (38.7-80.0); PLATELET COUNT 225 x10e3/uL (140-360); RED BLOOD COUNT 3.69 x10e6/uL (3.6-5.1)
[2019-04-16 06:32] LABS: ANION GAP 14.1 mmol/L (8-16); BLOOD UREA NITROGEN 13 mg/dL (7-26); BUN/CREATININE RATIO 16 (6-25); CALCIUM 9.7 mg/dL (8.4-10.2); CARBON DIOXIDE 23 mmol/L (22-29); CHLORIDE 105 mmol/L (98-107); CREATININE, SERUM 0.81 mg/dL (0.57-1.11); EST GLOMERULAR FILTRATION RATE > 60 ML/MIN (60-); GLUCOSE 163 mg/dL (74-118); POTASSIUM 4.1 mmol/L (3.5-5.1); SODIUM 138 mmol/L (136-145)
[2019-04-16] MEDS: CEFTRIAXONE SOD 1 GM/NS 50 ML 50 ML IV SCH (06:40)
[2019-04-16 07:20] VITALS: BP 168/72
--- NOTE | 2019-04-16 07:20 | NUR ---
PATIENT IN BED RESTING WITH NO RESPIRATORY DISTRESS. TELEMETRY BOX IN PLACE. BED IN LOWER POSITION, CALL LIGHT AT REACH.
[2019-04-16] MEDS: INSULIN LISPRO 100 UNIT/1 ML 3ML VIAL SQ SCH ×4 (07:30→11:30)
[2019-04-16 07:41] VITALS: BP 168/72
[2019-04-16] MEDS ORDERED: CALCIUM CARBONATE 500 MG CHEWABLE TABS PO SCH (09:00)
[2019-04-16] MEDS ORDERED: OMEGA 3 POLYUNSAT FATTY ACIDS 1000 MG SOFTGEL PO SCH (09:00)
[2019-04-16] MEDS ORDERED: RAMIPRIL 5 MG CAP PO SCH (09:00)
[2019-04-16] MEDS: ASPIRIN 81 MG CHEW TAB PO SCH (09:32)
[2019-04-16] MEDS: PREDNISONE 20 MG TAB PO SCH (09:33)
[2019-04-16 11:15] VITALS: BP 159/70
[2019-04-16] MEDS: GUAIFENESIN/CODEINE 10 ML CUP PO PRN (11:30)
--- NOTE | 2019-04-16 11:41 | NUR ---
PATIENT C/O COUGHING, COUGH SIRUP GIVEN ORDERED. NO MORE COUGHING AT THIS TIME. WILL CLOSELY MONITOR.
[2019-04-16] MEDS ORDERED: LEVAQUIN500 MG PO (15:29)
[2019-04-16] MEDS ORDERED: TESSALON PERLE100 MG PO (15:30)
[2019-04-16] MEDS ORDERED: PREDNISONE5 G1 PO (15:31)
--- NOTE | 2019-04-16 16:55 | NUR ---
PATIENT DISCHARGED HOME. DISCHARGE INSTRUCTIONS, PRESCRIPTIONS, AND FOLLOW UP GIVEN TO PATIENT, SHE VERBALIZED UNDERSTANDING. IV TO LEFT FOREARM REMOVED WITH TIP INTACT. ALL PERSONAL ITEMS TAKEN WITH PATIENT. LEFT UNIT PER WHEEL CHAIR TO FRONT LOBBY IN STABLE CONDITIONS.
--- NOTE | 2019-04-16 19:03 | Discharge Summary ---
FINAL DISCHARGE DIAGNOSES: 1. Acute bronchitis, improved. 2. Uncontrolled type 2 diabetes. 3. Community-acquired pneumonia. 4. Interstitial lung disease. 5. Abdominal pain with nausea, vomiting, all resolved. CONSULTANTS: 1. Pulmonary. 2. Endocrinology. PHYSICAL EXAMINATION: VITAL SIGNS: Temperature 98.3, pulse 57, respiratory rate is 18, blood pressure 159/70, and pulse ox 98% on room air. LABORATORY FINDINGS: Show white count 8, hemoglobin is 11.2, hematocrit 31.6, platelets of 225. Chemistry; sodium 138, potassium 4.1, chloride 105, bicarb 23, anion gap of 14, BUN is 13, creatinine 0.81, glucose of 163. Lactic acid was 14, but that is normal at this hospital, within the normal range. Calcium is 9.7, total bilirubin is 0.4. Her AST was 28, ALT was 19, albumin was 3.1. LDL was 99. TSH was 3.6. MICROBIOLOGY: Blood cultures were negative x2. Urine cultures were negative. IMAGING STUDIES: Chest x-ray findings suggestive of CHF with mild interstitial edema. CT abdomen and pelvis shows status post hysterectomy. Otherwise, there was a negative CT abdomen and pelvis. Repeat chest x-ray 04/14/2019, shows bibasilar opacities, likely representing fibrotic changes. CT of the chest was ordered without contrast that shows findings again most suggestive of chronic interstitial lung disease with basal predominance. Needs outpatient followup with Pulmonary. Scattered foci of segmental bronchial mucous plugging. Subcentimeter bilateral lower lobe pulmonary nodules are stable. HOSPITAL COURSE: This is a 73-year-old [place] female, who presented to the emergency room with complaints of cough, congestion and treated for acute bronchitis. There is underlying community-acquired pneumonia. While here, the patient was on broad-spectrum IV antibiotics. Blood cultures were negative x2. Urine culture was negative as well. She did have a leukocytosis on admission, but resolved prior to being discharged to home. Pulmonary was consulted. Imaging studies consistent with interstitial lung disease and likely needs outpatient followup with Pulmonary for further management and care. While here, Endocrinology was consulted for diabetes management and her sugars were well managed and controlled. The patient will be discharged on oral antibiotics as well as oral steroids with close followup with Pulmonary. On discharge, the patient was doing well, back to normal baseline with no other complaints. On the day of discharge, vital signs were stable, labs reviewed and stable. The patient is seen and evaluated, examined thoroughly on the day of discharge. No other complaints. The patient verbalized understanding and agrees to plan of care to follow up as an outpatient with the PCP in 1 week and the electrical checkout mechanic in 2 weeks' time. MEDICATIONS: See med reconciliation form. DISPOSITION: Home. CONDITION: Stable. DIET: Heart healthy. In the event of any worsening symptoms, the patient advised to come back to the ED for further evaluation. Discharge summary took greater than 35 minutes. MD EBONIE Sood/MODL /[id number]
[2019-04-16] MEDS ORDERED: CRESTOR 10MG PO SCH (21:00)
== END 2019-04-16 16:58 | disposition home or self-care (01) | DRG 871 ==
LOC: FSED 12:06 → ERHOLD 14:42 → IMCU 19:54 → MED/SURG3 04-14 20:56
PROVIDERS: ADMIT Internal Medicine; ATTEND Internal Medicine
DX: A41.9 Sepsis, unspecified organism (principal); J18.9 Pneumonia, unspecified organism; J20.9 Acute bronchitis, unspecified; E86.0 Dehydration; E11.42 Type 2 diabetes mellitus with diabetic polyneuropathy; I10 Essential (primary) hypertension; E03.9 Hypothyroidism, unspecified; F17.210 Nicotine dependence, cigarettes, uncomplicated; Z85.01 Personal history of malignant neoplasm of esophagus; Z79.4 Long term (current) use of insulin; E78.5 Hyperlipidemia, unspecified; I49.5 Sick sinus syndrome; I44.1 Atrioventricular block, second degree; R53.81 Other malaise; J84.10 Pulmonary fibrosis, unspecified
CPT/HCPCS: 36415; 71045; 71046; 71250; 74176; 80048; 80053; 80061; 81003; 82948; 83036; 83605; 84439; 84443; 84484; 85025; 87040; 87086; 93005; 93306; 96372; 96374; 99284; J0696; J1815; J1817; J2405; J7030; J7050; J7512

== ENCOUNTER → 2021-01-26 | Outpatient (CLI) | payer MEDICARE ==
[~2021-01-26] MED LIST changes: +PREDNISONE5 G1 PO; +TESSALON PERLE100 MG PO
== END ==
LOC: RAD 12:11
PROVIDERS: ATTEND Family Medicine
DX: J40 Bronchitis, not specified as acute or chronic (principal)
CPT/HCPCS: 71046

== ENCOUNTER 2021-08-25 11:53 | Emergency (ER) | payer MEDICARE ==
[~2021-08-25] VITALS: Ht 152.4 cm; Wt 59.5 kg
[2021-08-25] MEDS ORDERED: BENICAR20 MG PO (12:23)
[2021-08-25] MEDS ORDERED: HYDRALAZINE HC100 MG PO (12:23)
[2021-08-25] MEDS ORDERED: ALBUTEROL0.63 MG/3 NEB (12:23)
[2021-08-25] MEDS ORDERED: ATORVASTATIN CA20 MG PO (12:23)
[2021-08-25] MEDS ORDERED: CEFTRIAXONE 1 GM in SODIUM CHLORIDE 0.9% 50ML 50 ML IV ONE (14:00)
[2021-08-25] MEDS ORDERED: SODIUM CHLORIDE 0.9% 250ML 250 ML ONE (14:30)
[2021-08-25] MEDS ORDERED: SODIUM CHLORIDE 0.9% 50ML 50 ML ONE (14:30)
[2021-08-25] MEDS ORDERED: CEFTRIAXONE 1 GM VIAL ONE (14:31)
[2021-08-25] MEDS ORDERED: CEFDINIR300 MG PO (16:01)
[2021-08-25] MEDS ORDERED: VENTOLIN HFA18 GM INH (16:01)
== END 2021-08-25 16:12 | disposition home or self-care (01) ==
LOC: FSED 12:11
DX: R05.9 Cough, unspecified (principal); J18.9 Pneumonia, unspecified organism; J45.909 Unspecified asthma, uncomplicated; I10 Essential (primary) hypertension; E11.9 Type 2 diabetes mellitus without complications; Z20.822 Contact with and (suspected) exposure to COVID-19; E78.5 Hyperlipidemia, unspecified; E03.9 Hypothyroidism, unspecified
CPT/HCPCS: 71046; 80048; 80076; 85025; 87400; 99284; J0456; J0696; J7050; U0002

== ENCOUNTER → 2021-09-22 | Outpatient (CLI) | payer MEDICARE ==
[~2021-09-22] MED LIST changes: +ALBUTEROL0.63 MG/3 NEB; +ATORVASTATIN CA20 MG PO; +BENICAR20 MG PO; +CEFDINIR300 MG PO; +HYDRALAZINE HC100 MG PO; +VENTOLIN HFA18 GM INH
== END ==
LOC: RAD 12:39
PROVIDERS: ATTEND Family Medicine
DX: J40 Bronchitis, not specified as acute or chronic (principal)
CPT/HCPCS: 71046

== ENCOUNTER 2021-09-29 12:22 | Inpatient (IN) | payer MEDICARE ==
[~2021-09-29] VITALS: Ht 154.9 cm; Wt 53.6 kg
[2021-09-29] MEDS ORDERED: SODIUM CHLORIDE 0.9% 1000ML 1,000 ML IV ONE (12:35)
[2021-09-29 13:10] LABS: BASOPHILS # (AUTO) 0.1 (0.0-0.1); BASOPHILS % 0.5 % (0.0-1.0); EOSINOPHILS # (AUTO) 0.8 (0.0-0.4); EOSINOPHILS % 8.2 % (0.0-6.0); HEMATOCRIT 35.8 % (34.2-44.1); HEMOGLOBIN 11.5 g/dL (12.0-16.0); LYMPHOCYTES # (AUTO) 3.3 (1.0-3.2); LYMPHOCYTES % 35.5 % (18.0-39.1); MEAN CORPUSCULAR HEMOGLOBIN 29.1 pg (28-32); MEAN CORPUSCULAR HGB CONC 32.1 g/dL (31-35); MEAN CORPUSCULAR VOLUME 90.6 fL (81-99); MONOCYTES # (AUTO) 0.6 (0.2-0.8); MONOCYTES % 6.1 % (4.4-11.3); NEUTROPHILS # (AUTO) 4.6 (2.1-6.9); NEUTROPHILS % 49.5 % (38.7-80.0); PLATELET COUNT 225 x10e3/uL (140-360); RED BLOOD COUNT 3.95 x10e6/uL (3.6-5.1); RED CELL DISTRIBUTION WIDTH 13.7 % (11.7-14.4)
[2021-09-29] MEDS ORDERED: GUAIFENESIN/CODEINE 5 ML LIQD PO PRN (13:30)
[2021-09-29] MEDS ORDERED: DEXTROSE 50% SYRINGE 50 ML IV PRN (13:30)
[2021-09-29] MEDS ORDERED: ALBUTEROL SULF 0.083% NEB SOLN 3 ML NEB NEB PRN (13:30)
[2021-09-29] MEDS ORDERED: ATROPINE SULFATE 1 MG/ML VIAL IV PRN (13:30)
[2021-09-29] MEDS ORDERED: ZOLPIDEM TARTRATE 5 MG TAB PO PRN (13:30)
[2021-09-29] MEDS ORDERED: BENZONATATE 100 MG CAP PO PRN (13:30)
[2021-09-29 13:34] LABS: B-TYPE NATRIURETIC PEPTIDE2 260.8 pg/mL (0-100)
[2021-09-29 13:35] LABS: ALBUMIN 3.7 g/dL (3.5-5.0); CALCIUM 9.2 mg/dL (8.4-10.2); CREATININE, SERUM 1.18 mg/dL (0.57-1.11)
[2021-09-29] MEDS: PIPERACILLIN/TAZOBACTAM 3.375 GM in SODIUM CHLORIDE 0.9% 50ML 50 ML IV SCH ×2 (13:45→21:23)
[2021-09-29] MEDS ORDERED: Vancomycin IV 1 GM VIAL ONE (17:51)
[2021-09-29] MEDS ORDERED: SODIUM CHLORIDE 0.9% 250ML 250 ML ONE ×2 (17:51→18:37)
[2021-09-29] MEDS ORDERED: GENTAMICIN SULFATE 40 MG/ML 2 ML VIAL ONE ×2 (17:51→18:15)
[2021-09-29] MEDS ORDERED: SODIUM CHLORIDE 0.9% 1000ML 1,000 ML ONE ×2 (17:52→18:10)
[2021-09-29] MEDS ORDERED: IOPAMIDOL 300MG/ML 50ML INFUS..BTL IV ONE (17:54)
[2021-09-29] MEDS ORDERED: LIDOCAINE HCL 2% LOCAL 20 ML VIAL ONE (18:07)
[2021-09-29] MEDS ORDERED: MIDAZOLAM HCL 2 MG/2 ML VIAL ONE (18:26)
[2021-09-29] MEDS ORDERED: FENTANYL CITRATE/PF 100MCG/2 ML INJ ONE (18:27)
[2021-09-29] MEDS ORDERED: HYDRALAZINE HCL 20 MG/ML VIAL IV NR (19:00)
[2021-09-29 21:00] VITALS: BP 196/78
[2021-09-29] MEDS: INSULIN REGULAR, HUMAN 100 UNIT/1 ML SQ SCH (21:00)
[2021-09-29] MEDS: Cefazolin 1 GM in SODIUM CHLORIDE 0.9% 50ML 50 ML IV SCH (21:23)
[2021-09-29] MEDS: ATORVASTATIN 40 MG TAB PO SCH (21:23)
[2021-09-29] MEDS: INSULIN GLARGINE 100 UNITS/ML VIAL SQ SCH (21:23)
[2021-09-29 22:00] VITALS: BP 136/54
[2021-09-29] MEDS ORDERED: CEFTRIAXONE 1 GM in SODIUM CHLORIDE 0.9% 50ML 50 ML IV ONE (22:15)
[2021-09-29] MEDS ORDERED: ALBUTEROL/IPRATROPIUM 3 ML NEB NEB PRN (22:15)
[2021-09-29 23:00] VITALS: BP 167/71
[2021-09-29] MEDS: GUAIFENESIN/CODEINE 5 ML LIQD PO PRN (23:11)
[2021-09-29] MEDS: ALBUTEROL/IPRATROPIUM 3 ML NEB NEB SCH (23:27)
[2021-09-29 23:59] VITALS: BP 169/66
[2021-09-30] VITALS (23 sets, daily range): BP systolic 142–169; BP diastolic 52–101
[2021-09-30] MEDS: PIPERACILLIN/TAZOBACTAM 3.375 GM in SODIUM CHLORIDE 0.9% 50ML 50 ML IV SCH ×2 (02:21→08:12)
[2021-09-30] MEDS: ALBUTEROL/IPRATROPIUM 3 ML NEB NEB SCH ×6 (03:01→23:10)
[2021-09-30] MEDS: Cefazolin 1 GM in SODIUM CHLORIDE 0.9% 50ML 50 ML IV SCH (06:28)
[2021-09-30] MEDS: LEVOTHYROXINE SODIUM 100 MCG TAB PO SCH (06:28)
[2021-09-30 06:50] LABS: BASOPHILS # (AUTO) 0.1 (0.0-0.1); BASOPHILS % 0.7 % (0.0-1.0); EOSINOPHILS # (AUTO) 0.5 (0.0-0.4); EOSINOPHILS % 6.5 % (0.0-6.0); HEMATOCRIT 32.8 % (34.2-44.1); HEMOGLOBIN 10.8 g/dL (12.0-16.0); LYMPHOCYTES # (AUTO) 2.7 (1.0-3.2); LYMPHOCYTES % 32.8 % (18.0-39.1); MEAN CORPUSCULAR HEMOGLOBIN 29.2 pg (28-32); MEAN CORPUSCULAR HGB CONC 32.9 g/dL (31-35); MEAN CORPUSCULAR VOLUME 88.6 fL (81-99); MONOCYTES # (AUTO) 0.7 (0.2-0.8); MONOCYTES % 8.3 % (4.4-11.3); NEUTROPHILS # (AUTO) 4.2 (2.1-6.9); NEUTROPHILS % 51.6 % (38.7-80.0); PLATELET COUNT 222 x10e3/uL (140-360); RED CELL DISTRIBUTION WIDTH 13.3 % (11.7-14.4)
[2021-09-30 07:12] LABS: ALBUMIN 3.3 g/dL (3.5-5.0); ALBUMIN/GLOBULIN RATIO 1.1 (0.8-2.0); ANION GAP 13.8 mmol/L (8-16); CALCIUM 8.5 mg/dL (8.4-10.2); CREATININE, SERUM 0.82 mg/dL (0.57-1.11); POTASSIUM 3.8 mmol/L (3.5-5.1)
[2021-09-30 07:44] LABS: CREATINE KINASE MB 5.1 ng/mL (0-5.0)
[2021-09-30] MEDS: INSULIN REGULAR, HUMAN 100 UNIT/1 ML SQ SCH ×4 (08:11→20:30)
[2021-09-30] MEDS ORDERED: CEFTRIAXONE 1 GM in SODIUM CHLORIDE 0.9% 50ML 50 ML IV SCH (09:00)
[2021-09-30] MEDS: POTASSIUM CHLORIDE 10MEQ EA PO SCH (10:34)
[2021-09-30] MEDS: FUROSEMIDE INJ 10 MG/ML 4 ML VIAL IV SCH (10:34)
[2021-09-30] MEDS: GUAIFENESIN/CODEINE 5 ML LIQD PO PRN ×2 (12:55→22:54)
[2021-09-30] MEDS: INSULIN GLARGINE 100 UNITS/ML VIAL SQ SCH (20:32)
[2021-09-30] MEDS: ATORVASTATIN 40 MG TAB PO SCH (20:38)
[2021-09-30] MEDS: MINOCYCLINE HCL 50 MG CAP PO SCH (20:39)
[2021-10-01] VITALS (15 sets, daily range): BP systolic 121–163; BP diastolic 58–80
[2021-10-01] MEDS: ALBUTEROL/IPRATROPIUM 3 ML NEB NEB SCH ×6 (03:30→23:50)
[2021-10-01 05:08] LABS: BASOPHILS % 0.4 % (0.0-1.0); EOSINOPHILS # (AUTO) 0.4 (0.0-0.4); EOSINOPHILS % 3.3 % (0.0-6.0); HEMATOCRIT 33.9 % (34.2-44.1); HEMOGLOBIN 11.3 g/dL (12.0-16.0); LYMPHOCYTES # (AUTO) 2.8 (1.0-3.2); LYMPHOCYTES % 25.6 % (18.0-39.1); MEAN CORPUSCULAR HEMOGLOBIN 29.2 pg (28-32); MEAN CORPUSCULAR HGB CONC 33.3 g/dL (31-35); MEAN CORPUSCULAR VOLUME 87.6 fL (81-99); MONOCYTES # (AUTO) 0.7 (0.2-0.8); MONOCYTES % 6.5 % (4.4-11.3); NEUTROPHILS # (AUTO) 6.9 (2.1-6.9); NEUTROPHILS % 63.9 % (38.7-80.0); PLATELET COUNT 233 x10e3/uL (140-360); RED BLOOD COUNT 3.87 x10e6/uL (3.6-5.1); RED CELL DISTRIBUTION WIDTH 13.2 % (11.7-14.4)
[2021-10-01 06:03] LABS: ANION GAP 13.7 mmol/L (8-16); CREATININE, SERUM 0.81 mg/dL (0.57-1.11); POTASSIUM 3.7 mmol/L (3.5-5.1)
[2021-10-01] MEDS: LEVOTHYROXINE SODIUM 100 MCG TAB PO SCH (06:07)
[2021-10-01 07:07] LABS: CHOL/HDL RATIO 4.6 (3.0-3.6); MAGNESIUM 1.6 MG/DL (1.3-2.1)
[2021-10-01 07:29] LABS: THYROID STIMULATING HORMONE 0.261 uIU/mL (0.350-4.940)
[2021-10-01] MEDS: INSULIN REGULAR, HUMAN 100 UNIT/1 ML SQ SCH ×4 (08:26→21:00)
[2021-10-01] MEDS: FUROSEMIDE INJ 10 MG/ML 4 ML VIAL IV SCH (08:34)
[2021-10-01] MEDS: POTASSIUM CHLORIDE 10MEQ EA PO SCH (08:34)
[2021-10-01] MEDS: MINOCYCLINE HCL 50 MG CAP PO SCH ×2 (08:35→21:02)
[2021-10-01] MEDS: GUAIFENESIN/CODEINE 5 ML LIQD PO PRN (13:38)
[2021-10-01] MEDS: ATORVASTATIN 40 MG TAB PO SCH (21:02)
[2021-10-01] MEDS: INSULIN GLARGINE 100 UNITS/ML VIAL SQ SCH (21:07)
[2021-10-02] MEDS: ALBUTEROL/IPRATROPIUM 3 ML NEB NEB SCH ×2 (03:20→07:15)
[2021-10-02 04:00] VITALS: BP 139/63
[2021-10-02] MEDS: LEVOTHYROXINE SODIUM 100 MCG TAB PO SCH (05:40)
[2021-10-02 08:00] VITALS: BP 115/57
[2021-10-02 08:19] VITALS: BP 115/57
[2021-10-02] MEDS ORDERED: METOPROLOL TARTRATE 25 MG TAB PO SCH (09:00)
[2021-10-02] MEDS ORDERED: FUROSEMIDE 40 MG TAB PO SCH (09:00)
[2021-10-02] MEDS ORDERED: PANTOPRAZOLE SOD 40 MG TABEC PO SCH (09:30)
[2021-10-02] MEDS: POTASSIUM CHLORIDE 10MEQ EA PO SCH (09:46)
[2021-10-02] MEDS: MINOCYCLINE HCL 50 MG CAP PO SCH (09:47)
[2021-10-02] MEDS: INSULIN REGULAR, HUMAN 100 UNIT/1 ML SQ SCH ×3 (09:57→16:15)
[2021-10-02 12:00] VITALS: BP 129/67
[2021-10-02] MEDS ORDERED: METOPROLOL SUCCINATE 25 MG TAB XL PO ONE (12:00)
[2021-10-02 15:00] VITALS: BP 130/89
[2021-10-02] MEDS ORDERED: METOPROLOL SUCC50 MG PO (16:25)
[2021-10-02] MEDS ORDERED: K DUR10 MEQ PO (16:25)
[2021-10-02] MEDS ORDERED: LASIX40 MG PO (16:25)
[2021-10-02] MEDS ORDERED: MINOCYCLINE HCL50 MG PO (16:29)
[2021-10-03] MEDS ORDERED: METOPROLOL SUCCINATE 50 MG TAB XL PO SCH (09:00)
== END 2021-10-02 18:42 | disposition home or self-care (01) | DRG 242 ==
LOC: ER 12:26 → ERHOLD 13:39 → ICU 19:30 → MED/SURG 10-01 22:27
PROVIDERS: ADMIT Internal Medicine; ATTEND Internal Medicine
PROC: 0JH606Z Insertion of Pacemaker, Dual Chamber into Chest Subcutaneous Tissue and Fascia, Open Approach (ICD-10-PCS; principal; 2021-09-29)
PROC: 02H63JZ Insertion of Pacemaker Lead into Right Atrium, Percutaneous Approach (ICD-10-PCS; 2021-09-29)
PROC: 02HK3JZ Insertion of Pacemaker Lead into Right Ventricle, Percutaneous Approach (ICD-10-PCS; 2021-09-29)
DX: I44.2 Atrioventricular block, complete (principal); I21.A9 Other myocardial infarction type; I50.33 Acute on chronic diastolic (congestive) heart failure; J84.9 Interstitial pulmonary disease, unspecified; E11.22 Type 2 diabetes mellitus with diabetic chronic kidney disease; I16.0 Hypertensive urgency; E03.9 Hypothyroidism, unspecified; R00.1 Bradycardia, unspecified; R77.8 Other specified abnormalities of plasma proteins; I11.0 Hypertensive heart disease with heart failure; I25.10 Atherosclerotic heart disease of native coronary artery without angina pectoris; E11.40 Type 2 diabetes mellitus with diabetic neuropathy, unspecified; Z79.899 Other long term (current) drug therapy; Z20.822 Contact with and (suspected) exposure to COVID-19
CPT/HCPCS: 33208; 36415; 71045; 80048; 80053; 80061; 82550; 82553; 82607; 82746; 82948; 83036; 83540; 83605; 83735; 83880; 84443; 84466; 84484; 85025; 87040; 93005; 93306; 94640; 94799; 96360; 96372; 97139; 99152; 99153; 99285; J0360; J0690; J0696; J1580; J1815; J1817; J1940; J2001; J2250; J2543; J3010; J3370; J7030; J7050; U0002

== ENCOUNTER 2022-02-11 13:21 | Emergency (ER) | payer MEDICARE ==
[~2022-02-11] VITALS: Ht 124.5 cm; Wt 49.9 kg
[~2022-02-11 13:21] MED LIST changes: +K DUR10 MEQ PO; +LASIX40 MG PO; +METOPROLOL SUCC50 MG PO; +MINOCYCLINE HCL50 MG PO
[2022-02-11] MEDS ORDERED: BENZONATATE100 MG PO (15:11)
== END 2022-02-11 16:46 | disposition home or self-care (01) ==
LOC: FSED 13:45
DX: R05.9 Cough, unspecified (principal); J06.9 Acute upper respiratory infection, unspecified; I10 Essential (primary) hypertension; E11.9 Type 2 diabetes mellitus without complications; E78.5 Hyperlipidemia, unspecified; E03.9 Hypothyroidism, unspecified; Z95.0 Presence of cardiac pacemaker; Z20.822 Contact with and (suspected) exposure to COVID-19
CPT/HCPCS: 71046; 87400; 99283; U0002

== ENCOUNTER 2022-04-04 20:58 | Inpatient (IN) | payer MEDICARE ==
[~2022-04-04] VITALS: Ht 124.5 cm; Wt 51.0 kg
[~2022-04-04 20:58] MED LIST changes: +BENZONATATE100 MG PO
[2022-04-04] MEDS ORDERED: ALBUTEROL SULF 0.083% NEB SOLN 3 ML NEB NEB STA (21:17)
[2022-04-04] MEDS ORDERED: FUROSEMIDE INJ 10 MG/ML 4 ML VIAL IV ONE ×3 (21:30→21:45)
[2022-04-04] MEDS ORDERED: ALBUTEROL/IPRATROPIUM 3 ML NEB ONE (21:32)
[2022-04-04] MEDS ORDERED: NITROGLYCERIN 2% OINT 1 GM PKT TOP ONE (21:45)
[2022-04-04] MEDS ORDERED: FUROSEMIDE INJ 10 MG/ML 4 ML VIAL ONE (21:58)
[2022-04-04] MEDS ORDERED: NITROGLYCERIN 2% OINT 1 GM PKT ONE (21:58)
[2022-04-04] MEDS ORDERED: ASPIRIN 81 MG CHEW TAB PO ONE (22:15)
[2022-04-04] MEDS ORDERED: SODIUM CHLORIDE FLUSH 10 ML SYR INJ PRN (22:15)
[2022-04-04] MEDS ORDERED: ALBUTEROL/IPRATROPIUM 3 ML NEB NEB PRN (22:30)
[2022-04-04] MEDS ORDERED: ONDANSETRON HCL INJ 2MG/ML 2ML 2 MG/ML VIAL IV PRN (23:45)
[2022-04-04 23:50] VITALS: BP 131/80
[2022-04-05] VITALS (24 sets, daily range): BP systolic 92–144; BP diastolic 49–89
[2022-04-05 06:53] LABS: BASOPHILS # (AUTO) 0.1 (0.0-0.1); BASOPHILS % 0.8 % (0.0-1.0); EOSINOPHILS # (AUTO) 0.4 (0.0-0.4); EOSINOPHILS % 4.7 % (0.0-6.0); HEMATOCRIT 31.6 % (34.2-44.1); HEMOGLOBIN 10.8 g/dL (12.0-16.0); LYMPHOCYTES # (AUTO) 2.9 (1.0-3.2); LYMPHOCYTES % 34.6 % (18.0-39.1); MEAN CORPUSCULAR HEMOGLOBIN 29.7 pg (28-32); MEAN CORPUSCULAR HGB CONC 34.2 g/dL (31-35); MEAN CORPUSCULAR VOLUME 86.8 fL (81-99); MONOCYTES # (AUTO) 0.6 (0.2-0.8); MONOCYTES % 7.7 % (4.4-11.3); NEUTROPHILS # (AUTO) 4.3 (2.1-6.9); NEUTROPHILS % 51.8 % (38.7-80.0); PLATELET COUNT 220 x10e3/uL (140-360); RED BLOOD COUNT 3.64 x10e6/uL (3.6-5.1); RED CELL DISTRIBUTION WIDTH 13.7 % (11.7-14.4)
[2022-04-05 07:14] LABS: CALCIUM 8.8 mg/dL (8.4-10.2); CREATININE, SERUM 0.85 mg/dL (0.57-1.11)
[2022-04-05] MEDS: FUROSEMIDE INJ 10 MG/ML 4 ML VIAL IV SCH ×2 (09:22→21:26)
[2022-04-05] MEDS ORDERED: DEXTROSE 50% SYRINGE 50 ML IV PRN (09:45)
[2022-04-05] MEDS: INSULIN REGULAR, HUMAN 100 UNIT/1 ML SQ SCH ×3 (09:53→21:34)
[2022-04-05 10:57] LABS: CREATINE KINASE MB 4.7 ng/mL (0-5.0)
[2022-04-05] MEDS ORDERED: CLOPIDOGREL BISULFATE 75 MG TAB PO ONE (11:00)
[2022-04-05] MEDS ORDERED: ALBUTEROL/IPRATROPIUM 3 ML NEB NEB PRN (11:00)
[2022-04-05 11:12] LABS: ALBUMIN 3.5 g/dL (3.5-5.0); ALBUMIN/GLOBULIN RATIO 1.2 (0.8-2.0); CALCIUM 8.9 mg/dL (8.4-10.2); CREATININE, SERUM 0.85 mg/dL (0.57-1.11)
[2022-04-05] MEDS ORDERED: ALBUTEROL SULF 0.083% NEB SOLN 3 ML NEB NEB PRN (11:15)
[2022-04-05] MEDS ORDERED: ALBUTEROL SULFATE HFA 8GM INHALATION AEROSOL INH PRN (11:15)
[2022-04-05 11:23] LABS: CHOL/HDL RATIO 2.6 (3.0-3.6)
[2022-04-05] MEDS: METOPROLOL SUCCINATE 50 MG TAB XL PO SCH (11:31)
[2022-04-05 11:42] LABS: THYROID STIMULATING HORMONE 1.256 uIU/mL (0.350-4.940)
[2022-04-05 14:16] LABS: CREATINE KINASE MB 4.1 ng/mL (0-5.0)
[2022-04-05 20:28] LABS: CREATINE KINASE MB 3.3 ng/mL (0-5.0)
[2022-04-05] MEDS ORDERED: ATORVASTATIN 20 MG TAB PO SCH (21:00)
[2022-04-05] MEDS: ATORVASTATIN 40 MG TAB PO SCH (21:26)
[2022-04-05] MEDS: INSULIN GLARGINE 100 UNITS/ML VIAL SQ SCH (21:35)
[2022-04-06] VITALS (22 sets, daily range): BP systolic 94–132; BP diastolic 53–76
[2022-04-06] MEDS: LEVOTHYROXINE SODIUM 75 MCG TAB PO SCH (06:10)
[2022-04-06 07:08] LABS: BASOPHILS # (AUTO) 0.1 (0.0-0.1); BASOPHILS % 0.8 % (0.0-1.0); EOSINOPHILS # (AUTO) 0.8 (0.0-0.4); EOSINOPHILS % 9.1 % (0.0-6.0); HEMATOCRIT 35.2 % (34.2-44.1); HEMOGLOBIN 11.8 g/dL (12.0-16.0); LYMPHOCYTES # (AUTO) 2.4 (1.0-3.2); LYMPHOCYTES % 28.5 % (18.0-39.1); MEAN CORPUSCULAR HEMOGLOBIN 29.6 pg (28-32); MEAN CORPUSCULAR HGB CONC 33.5 g/dL (31-35); MEAN CORPUSCULAR VOLUME 88.4 fL (81-99); MONOCYTES # (AUTO) 0.6 (0.2-0.8); MONOCYTES % 7.4 % (4.4-11.3); NEUTROPHILS # (AUTO) 4.5 (2.1-6.9); PLATELET COUNT 252 x10e3/uL (140-360); RED BLOOD COUNT 3.98 x10e6/uL (3.6-5.1); RED CELL DISTRIBUTION WIDTH 13.2 % (11.7-14.4)
[2022-04-06 07:26] LABS: ALBUMIN 3.7 g/dL (3.5-5.0); ALBUMIN/GLOBULIN RATIO 1.1 (0.8-2.0); ANION GAP 16.7 mmol/L (8-16); CALCIUM 9.4 mg/dL (8.4-10.2); CREATININE, SERUM 1.06 mg/dL (0.57-1.11); POTASSIUM 3.7 mmol/L (3.5-5.1)
[2022-04-06] MEDS: INSULIN REGULAR, HUMAN 100 UNIT/1 ML SQ SCH ×4 (08:04→21:10)
[2022-04-06] MEDS: CLOPIDOGREL BISULFATE 75 MG TAB PO SCH (08:56)
[2022-04-06] MEDS: METOPROLOL SUCCINATE 50 MG TAB XL PO SCH (08:57)
[2022-04-06] MEDS: FUROSEMIDE INJ 10 MG/ML 4 ML VIAL IV SCH ×2 (09:24→21:09)
[2022-04-06] MEDS: ATORVASTATIN 40 MG TAB PO SCH (21:09)
[2022-04-06] MEDS: INSULIN GLARGINE 100 UNITS/ML VIAL SQ SCH (21:11)
[2022-04-07 00:58] VITALS: BP 132/76
[2022-04-07 04:00] VITALS: BP 131/67
[2022-04-07] MEDS: LEVOTHYROXINE SODIUM 75 MCG TAB PO SCH (05:31)
[2022-04-07 05:46] LABS: ANION GAP 17.6 mmol/L (8-16); CALCIUM 9.1 mg/dL (8.4-10.2); CREATININE, SERUM 0.96 mg/dL (0.57-1.11); POTASSIUM 3.6 mmol/L (3.5-5.1)
[2022-04-07 05:50] LABS: BASOPHILS # (AUTO) 0.1 (0.0-0.1); BASOPHILS % 0.9 % (0.0-1.0); EOSINOPHILS # (AUTO) 0.7 (0.0-0.4); EOSINOPHILS % 7.5 % (0.0-6.0); HEMATOCRIT 33.9 % (34.2-44.1); HEMOGLOBIN 11.5 g/dL (12.0-16.0); LYMPHOCYTES # (AUTO) 2.8 (1.0-3.2); LYMPHOCYTES % 29.8 % (18.0-39.1); MEAN CORPUSCULAR HEMOGLOBIN 29.7 pg (28-32); MEAN CORPUSCULAR HGB CONC 33.9 g/dL (31-35); MEAN CORPUSCULAR VOLUME 87.6 fL (81-99); MONOCYTES # (AUTO) 0.8 (0.2-0.8); MONOCYTES % 8.8 % (4.4-11.3); NEUTROPHILS # (AUTO) 4.9 (2.1-6.9); NEUTROPHILS % 52.8 % (38.7-80.0); PLATELET COUNT 241 x10e3/uL (140-360); RED BLOOD COUNT 3.87 x10e6/uL (3.6-5.1); RED CELL DISTRIBUTION WIDTH 13.1 % (11.7-14.4)
[2022-04-07 06:03] LABS: ALBUMIN 3.6 g/dL (3.5-5.0)
[2022-04-07] MEDS: INSULIN REGULAR, HUMAN 100 UNIT/1 ML SQ SCH ×2 (07:30→11:30)
[2022-04-07 08:35] VITALS: BP 117/65
[2022-04-07 08:58] VITALS: BP 117/65
[2022-04-07] MEDS ORDERED: FUROSEMIDE INJ 10 MG/ML 4 ML VIAL IV SCH (09:00)
[2022-04-07] MEDS: METOPROLOL SUCCINATE 50 MG TAB XL PO SCH (09:12)
[2022-04-07] MEDS: CLOPIDOGREL BISULFATE 75 MG TAB PO SCH (09:12)
[2022-04-07] MEDS: FUROSEMIDE INJ 10 MG/ML 4 ML VIAL IV SCH (09:12)
[2022-04-08] MEDS ORDERED: LOSARTAN POTASSIUM 25 MG TAB PO SCH (09:00)
== END 2022-04-07 12:35 | disposition home or self-care (01) | DRG 291 ==
LOC: FSED 21:04 → ERHOLD 22:14 → ICU 23:50 → MED/SURG 04-06 21:31
DX: I11.0 Hypertensive heart disease with heart failure (principal); I50.43 Acute on chronic combined systolic (congestive) and diastolic (congestive) heart failure; D64.9 Anemia, unspecified; J84.10 Pulmonary fibrosis, unspecified; Z95.0 Presence of cardiac pacemaker; E03.9 Hypothyroidism, unspecified; J44.9 Chronic obstructive pulmonary disease, unspecified; I25.10 Atherosclerotic heart disease of native coronary artery without angina pectoris; E11.69 Type 2 diabetes mellitus with other specified complication; E78.49 Other hyperlipidemia; Z20.822 Contact with and (suspected) exposure to COVID-19; Z79.4 Long term (current) use of insulin
CPT/HCPCS: 36415; 71045; 80048; 80053; 80061; 82550; 82553; 82948; 83880; 84443; 84484; 85025; 93306; 94799; 96372; 99284; J1815; J1817; J1940

== ENCOUNTER → 2022-07-15 | Outpatient (CLI) | payer MEDICARE | LOC: RAD 11:47 | PROVIDERS: ATTEND Family Medicine | DX: R05.9 Cough, unspecified (principal) | CPT/HCPCS: 71046 ==

== ENCOUNTER → 2022-08-26 | Outpatient (CLI) | payer MEDICARE | LOC: RAD 12:33 | PROVIDERS: ATTEND Family Medicine | DX: J40 Bronchitis, not specified as acute or chronic (principal); I50.9 Heart failure, unspecified | CPT/HCPCS: 71046 ==

== ENCOUNTER 2024-11-27 11:47 | Emergency (ER) | payer MEDICARE ==
[~2024-11-27 11:47] MED LIST changes: +CLOPIDOGREL75 MG PO; +IRON; +LASIX20 MG PO; +LOSARTAN POTASS50 MG PO; +PANTOPRAZOLE SO40 MG PO; +POTASSIUM CHLO10 ME1 PO; +RANEXA PO; +VITAMIN D31 ML; +XARELTO20 MG PO
[2024-11-27 12:25] VITALS: PULSE 105; RESP 24
[2024-11-27] MEDS: ALBUTEROL SULF 0.083% NEB SOLN 3 ML NEB NEB STA (12:25)
[2024-11-27] MEDS: ACETAMINOPHEN 325 MG TAB PO ONE (13:13)
[2024-11-27] MEDS: AMOXICILLIN/CLAVULANATE K 875 MG TAB PO STA (14:04)
[2024-11-27 14:08] VITALS: PULSE 102; RESP 20; TEMP 98.4; O2SAT 95
[2024-11-27] MEDS ORDERED: BENZONATATE100 MG PO (14:09)
[2024-11-27] MEDS ORDERED: VENTOLIN HFA18 GM INH (14:09)
[2024-11-27] MEDS ORDERED: AMOXICILLIN875 MG PO (14:09)
== END 2024-11-27 14:20 | disposition home or self-care (01) ==
LOC: FSED 11:57
DX: R05.9 Cough, unspecified (principal); J40 Bronchitis, not specified as acute or chronic; J06.9 Acute upper respiratory infection, unspecified; I10 Essential (primary) hypertension; E11.9 Type 2 diabetes mellitus without complications; E78.5 Hyperlipidemia, unspecified; E03.9 Hypothyroidism, unspecified; I25.10 Atherosclerotic heart disease of native coronary artery without angina pectoris; Z11.52 Encounter for screening for COVID-19; Z95.810 Presence of automatic (implantable) cardiac defibrillator; Z95.5 Presence of coronary angioplasty implant and graft
CPT/HCPCS: 0223U; 71045; 83518; 87400; 87420; 99284